=== PATIENT | male | born 1985 | race Two or more races ===

== ENCOUNTER 2019-02-20 19:13 | Emergency (ER) | payer MEDICAID ==
[~2019-02-20] VITALS: Ht 175.3 cm; Wt 82.0 kg
[2019-02-20] MEDS ORDERED: IBUPROFEN 800MG TABLET PO ONE (23:15)
[2019-02-21 00:01] VITALS: BP 122/85
== END 2019-02-21 00:04 | disposition home or self-care (01) ==
LOC: ER 19:13
DX: M54.5 Low back pain (principal); Z91.81 History of falling; F17.210 Nicotine dependence, cigarettes, uncomplicated
CPT/HCPCS: 72100; 99283